=== PATIENT | male | born 1995 | race Caucasian/White ===

== ENCOUNTER 2020-07-08 04:08 | Emergency (ER) | payer SELFPAY ==
[~2020-07-08] VITALS: Ht 172.7 cm; Wt 97.0 kg
[2020-07-08] MEDS ORDERED: ASPIRIN 81 MG TABLET CHEW ONE (04:52)
[2020-07-08] MEDS ORDERED: ASPIRIN 81 MG TABLET CHEW PO ONE (05:00)
[2020-07-08] MEDS ORDERED: PLEASE ENTER ALLERGIES MC SCH (05:00)
[2020-07-08 05:26] LABS: BASOPHILS % (AUTO) 1 % (0-1); EOSINOPHILS % (AUTO) 6 % (1-7); LYMPHOCYTES % (AUTO) 27 % (22-44); MEAN CORPUSCULAR HEMOGLOBIN 32.1 pg (27.5-34.5); MEAN CORPUSCULAR HGB CONC 33.9 g/dL (33.2-36.2); MEAN PLATELET VOLUME 7.6 fL (7.4-10.4); MONOCYTES % (AUTO) 8 % (2-9); NEUTROPHILS % (AUTO) 60 % (42-75); PLATELET COUNT 324 x10^3/uL (130-400); RED BLOOD COUNT 4.24 x10^6/uL (4.38-5.82); RED CELL DISTRIBUTION WIDTH 15.7 % (9.4-14.8)
[2020-07-08 05:28] LABS: MD NO
[2020-07-08 05:38] LABS: ALANINE AMINOTRANSFERASE 63 U/L (12-78); ALBUMIN 3.9 g/dL (3.4-5.0); ANION GAP 6 mmol/L (5-15); CALCIUM 8.5 mg/dL (8.5-10.1); CHLORIDE 108 mmol/L (98-107)
[2020-07-08 05:43] LABS: ALKALINE PHOSPHATASE 56 U/L (45-117); BILIRUBIN,TOTAL 0.2 mg/dL (0.2-1.0); CREATININE 0.93 mg/dL (0.7-1.3); TOTAL PROTEIN 7.1 g/dL (6.4-8.2); TROPONIN I < 0.015 ng/mL (0.000-0.045)
[2020-07-08 06:38] VITALS: BP 122/87
--- NOTE | 2020-07-08 06:39 | NUR ---
PATIENT CLEARED FOR DISCHARGE. NO NOTED ACUTE DISTRESS. AMBULATORY TO DISCHARGE WITH BELONGINGS WITHOUT COMPLICATIONS. VERBALIZED UNDERSTANDING OF SELF CARE AND FOLLOW UP CARE AT HOME.
== END 2020-07-08 06:43 | disposition home or self-care (01) ==
LOC: ED 04:38
DX: M94.0 Chondrocostal junction syndrome [Tietze] (principal); F14.10 Cocaine abuse, uncomplicated; R07.9 Chest pain, unspecified
CPT/HCPCS: 36415; 71045; 80053; 84484; 85025; 93005; 99285